=== PATIENT | male | born 1970 | race Caucasian/White ===

== ENCOUNTER → 2020-03-05 09:03 | Outpatient (CLI) | payer MEDICAID, SELFPAY ==
[2016-03-13 15:18] VITALS: BMI 37.1
[2020-03-05 10:33] LABS: Cholesterol 126 mg/dL (200); High Density Lipoprotein 24 mg/dL; Triglycerides 402 mg/dL
[2020-03-05 10:39] LABS: Microalbumin,Random Urine 9.2 mg/L (NO RANGE EST.); Microalbumin:Creatinine Ratio 4.8 mg/g CRE (<30 mg/g CRE)
[2020-03-05 10:41] LABS: Hemoglobin A1c 10.3 % (3.8-5.6)
[2020-03-05 11:36] LABS: Vitamin D,25 Hydroxy 21.8 ng/mL
== END ==
DX: E11.9 Type 2 diabetes mellitus without complications (principal); E78.5 Hyperlipidemia, unspecified; I10 Essential (primary) hypertension
CPT/HCPCS: 36415; 80061; 82043; 82306; 82570; 83036

== ENCOUNTER 2021-01-01 06:43 | Day surgery (SDC) | payer MEDICAID, SELFPAY ==
[2021-01-01] MEDS: Lactated Ringers 1,000 ML 15 ML IV (06:50)
[2021-01-01 07:08] VITALS: BP 142/97; PULSE 96; RESP 16; TEMP 36.6; O2SAT 97; BMI 35.4
[2021-01-01 07:35] LABS: Bedside Glucose 166 mg/dL (70-110)
--- NOTE | 2021-01-01 07:57 | HP.PCM_ITS ---
HPI - General HPI Narrative CLAYTON BARRIENTOS, is a 50 M who presents for screening colonoscopy. Patient's never had a previous colonoscopy. Patient denies any family history of colon cancer. Patient's bowel movements daily denies any blood. Patient denies any chronic abdominal pain/nausea/vomiting/reflux. [facility] Medical History (Updated 01/01/21 @ 08:[address] Rachel Colbert MD) Anxiety Diabetes Gastric reflux Gout High cholesterol History of diverticulitis History of rheumatic fever History of stress test Hypertension Insulin dependent diabetes mellitus Non-smoker Wears glasses Home Medications aspirin 81 mg PO DAILY@0800 03/13/16 [History Last Taken 03/13/16] diazepam 5 mg PO Q8 PRN #10 tab 03/13/16 [Rx Last Taken Unknown] glimepiride 4 mg PO DAILY 03/13/16 [History Last Taken 03/13/16] hydrochlorothiazide 25 mg PO DAILY 03/13/16 [History Last Taken 03/12/16] lisinopril [Prinivil] 10 mg PO BID 03/13/16 [History Last Taken 01/01/21] metformin 1,000 mg PO DAILY 03/13/16 [History Last Taken 03/13/16] sertraline [Zoloft] 25 mg PO DAILY 03/13/16 [History Last Taken 03/13/16] dulaglutide [Trulicity] 0.75 mg SUBCUT MOORE 12/31/20 [History Last Taken Unknown] insulin glargine [Lantus Solostar U-100 Insulin] 15 unit SUBCUT 0800 12/31/20 [History Last Taken Unknown] insulin glargine [Lantus Solostar U-100 Insulin] 55 unit SUBCUT QHS 12/31/20 [History Last Taken Unknown] omeprazole 40 mg PO DAILY 12/31/20 [History Last Taken Unknown] Allergy/AdvReac Type Severity Reaction Status Date / Time No Known Allergies Allergy Verified 01/01/21 07:06 Surgical History (Updated 12/31/20 @ 08:21 by Silvia Calero) Hx of surgical procedure Social History Smoking Status: Never smoker Past Medical/Surgical History Planned Operation Planned Operative Procedure/s: COLONOSCOPY Previous Hospitalizations/Surgeries HX Hospitalizations: No Any Problems With Anesthesia: No You/Your Family Experience Fever (Hyperthermia) With Anes: No Cholinesterase deficiency: No Cardiovascular Hx Heart Attack: No Hx Hypertension: Yes (CONTROLLED ON MED) Respiratory Hx Chronic Obstructive Pulmonary Disease (COPD): No Hx Asthma: No Hx Emphysema: No Hx Sleep Apnea: No Hx Respiratory Tract Infection/Cold (presently): No Do You Snore Loudly (louder than talking or can be heard): Yes Do You Often Feel Tired/ Fatigued/ Sleepy Dring Daytime?: No Has Anyone Observed You Stop Breathing During Sleep?: Yes Result (for STOP score): Positive Smoking Status: Never smoker Gastrointestinal Special diet followed at home: No Neurological Hx Seizures: No Does patient have nerve stimulator: No Endocrine Hx Diabetes: Yes Psycho/Social Hx Anxiety: Yes Miscellaneous Recent Exposure to Contagious Disease: No Allergies No Known Allergies Allergy (Verified 01/01/21 07:06) Discharge Is Pt Admitted From a [facility], or a Snf: No After D/C, Where Do you Plan to Go: Return Home Vital Signs Vital Signs Vital Signs: 01/01/21 07:08 Temperature 97.9 F Temperature Source Temporal Pulse Rate 96 Respiratory Rate 16 Respiratory Pattern Normal Blood Pressure 142/97 H Blood Pressure Mean 112 Blood Pressure Source Monitor Blood Pressure Position Semi-Fowlers Blood Pressure Location Right Arm Pulse Ox 97 Oxygen Delivery Method Room Air Weight Weight: 240 lb 4.862 oz Body Mass Index (BMI) 35.4 Physical Exam Const alert, oriented x3 and no apparent distress HEENT normocephalic and head/scalp atraumatic Resp normal respiratory effort Cardio regular rate GI soft to palpation and non-tender; Negative for non-distended Palpation: Negative for guarding Extremity no clubbing, cyanosis or edema Neuro CN's II-XII intact bilaterally Psych mental status grossly normal Assessment & Plan Assessment/Plan (1) Screening for colon cancer: Procedure Criteria Type of Procedure Procedure Type: Elective Elective Risks - COVID COVID Risk Discussion: The surgeon/proceduralist and patient have discussed in detail the risk of exposure to and/or potential harm posed by the COVID-19 virus with having a surgery/procedure at this time versus the risk of delaying the surgery/procedure. It is not possible to know either the risk of delaying the surgery or procedure or chance of getting an infection with perfect accuracy, but a joint decision was made between the patient and the surgeon/proceduralist to proceed at this time with the scheduled surgery/procedure as indicated on the consent form. Surgery Risks - Colonoscopy Risks Include but are not Limited To: Risks include but are not limited to: Bleeding, perforation requiring further surgery, inability to complete colonoscopy requiring barium enema.
--- NOTE | 2021-01-01 08:00 | COLBX_PTH ---
PATIENT: CLAYTON BARRIENTOS LOC: EN U#:[id number] AGE/SX: 50/M ROOM: RE01/01/[address]: Dr. Rachel Colbert MD : 1970 BED: DIS: 01/01/2021 SPEC #: [id number] RECD: 01/01/21 12:03 STATUS: FRITZ MARLEEN #: [id number] CORI: 01/01/21 08:[address]: Rachel Colbert DEPT: SURGICAL PATHOLOGY RECD BY: Daniela Anderson ENTERED: 01/01/21 13:33 SP TYPE: COLON BX OTHR DR: Aura Reed, COLD ROLLING SUPERVISOR-C [facility] Tissues: Rectum, NOS Procedures: Surgery Specimen Level IV HEADER OPERATION: Colonoscopy ? open access (MAC) PRE-OP DIAGNOSIS: Screening for colon cancer TISSUE SUBMITTED: Biopsy rectum polyp MICROSCOPIC DIAGNOSIS Rectum polyp, biopsy: Fragments of hyperplastic polyp. SJ:radha 01/02/2021 MICROSCOPIC DESCRIPTION Slides are reviewed. GROSS DESCRIPTION Received in fixative is one container labeled with the patient's name and designated biopsy rectum polyp. The specimen consists of multiple irregular fragments of light martinez soft tissue that in aggregate measure 0.8 x 0.3 x 0.1 cm. The specimen is totally submitted in one cassette. / RADHA:radha 01/01/21 TC:1 CPT: 76078
[2021-01-01 08:35] VITALS: BP 116/78; BP 142/97; PULSE 101; RESP 16; TEMP 36.3; O2SAT 96
--- NOTE | 2021-01-01 08:37 | OP.CCLET_ITS ---
01/01/2021 Crista Pretty [facility] Re : Colonoscopy procedure for Patricio Jenkins [facility] This procedure was performed on Friday, January 01, 2021. My impressions and recommendations are as follows: Impressions : - One less than 5 mm polyp in the rectum, removed with a cold biopsy forceps. Resected and retrieved. - The examination was otherwise normal. Recommendations : - Discharge patient to home. - Resume previous diet. - Continue present medications. - Await pathology results. - Repeat colonoscopy in 5-10 years for surveillance based on pathology results. My findings are described in the full procedure note, which is enclosed. If I can be of further assistance, please feel free to contact me at Doctor phone number(s): , Work: . Sincerely, MD Rachel Healy MD 01/01/2021 8:37:11 AM This report has been signed electronically.
--- NOTE | 2021-01-01 08:37 | OP.COLON_ITS ---
Patient Name: Patricio Jenkins Procedure Date: 01/01/2021 7:34 AM Date of : 1970 Age: 50 Procedure: Colonoscopy Indications: Screening for colorectal malignant neoplasm Providers: Rachel Colbert MD Medicines: Monitored Anesthesia Care Patient Profile: This is a 50 year old male. Last Colonoscopy: none. The patient's first colonoscopy is today. Complications: No immediate complications. Procedure: Pre-Anesthesia Assessment: - Prior to the procedure, a History and Physical was performed, and patient medications and allergies were reviewed. The patient's tolerance of previous anesthesia was also reviewed. The risks and benefits of the procedure and the sedation options and risks were discussed with the patient. All questions were answered, and informed consent was obtained. Prior Anticoagulants: The patient has taken no previous anticoagulant or antiplatelet agents. ASA Grade Assessment: Per anesthesia. After reviewing the risks and benefits, the patient was deemed in satisfactory condition to undergo the procedure. After I obtained informed consent, the scope was passed under direct vision. Throughout the procedure, the patient's blood pressure, pulse, and oxygen saturations were monitored continuously. The Colonoscope was introduced through the anus and advanced to the cecum, identified by appendiceal orifice and ileocecal valve. The colonoscopy was performed without difficulty. The patient tolerated the procedure well. The quality of the bowel preparation was good. Scope In: 8:09:01 AM Scope Withdrawal Time 0 hours 16 minutes 8 seconds Scope Out: 8:30:23 AM Total Procedure Duration Time 0 hours 21 minutes 22 seconds Findings: The perianal and digital rectal examinations were normal. A less than 5 mm polyp was found in the rectum. The polyp was sessile. The polyp was removed with a cold biopsy forceps. Resection and retrieval were complete. The exam was otherwise without abnormality. Impression: - One less than 5 mm polyp in the rectum, removed with a cold biopsy forceps. Resected and retrieved. - The examination was otherwise normal. Recommendation: - Discharge patient to home. - Resume previous diet. - Continue present medications. - Await pathology results. - Repeat colonoscopy in 5-10 years for surveillance based on pathology results. Procedure Code(s): --- Professional --- 45718, PT, Colonoscopy, flexible; with biopsy, single or multiple Diagnosis Code(s): --- Professional --- Z12.11, Encounter for screening for malignant neoplasm of colon K62.1, Rectal polyp CPT copyright 2017 [employer]. All rights reserved. The codes documented in this report are preliminary and upon cash management officer review may be revised to meet current compliance requirements. MD Rachel Healy MD 01/01/2021 8:37:11 AM This report has been signed electronically. Number of Addenda: 0 Note Initiated On: 01/01/2021 7:34 AM
[2021-01-01 08:40] VITALS: BP 124/90; BP 142/97; PULSE 98; RESP 16; O2SAT 94
[2021-01-01 08:45] VITALS: BP 122/87; BP 142/97; PULSE 93; RESP 16; O2SAT 93
[2021-01-01 08:50] VITALS: BP 115/95; BP 142/97; PULSE 89; RESP 16; TEMP 36.1; O2SAT 94
[2021-01-01 09:10] VITALS: BP 142/97
== END 2021-01-01 09:18 ==
LOC: EN 06:44 → AC 06:46
PROVIDERS: Visit Provider Surgery
PROC: 0DJD8ZZ Inspection of Lower Intestinal Tract, Via Natural or Artificial Opening Endoscopic (ICD-10-PCS; CPT 45378; principal; 2021-01-01 07:55)
DX: Z12.11 Encounter for screening for malignant neoplasm of colon (principal); K62.1 Rectal polyp; K21.9 Gastro-esophageal reflux disease without esophagitis; F41.9 Anxiety disorder, unspecified; E11.9 Type 2 diabetes mellitus without complications; I10 Essential (primary) hypertension; Z79.4 Long term (current) use of insulin; Z79.899 Other long term (current) drug therapy
CPT/HCPCS: 45380; 82962; 88305; J7120; J2405

== ENCOUNTER 2021-04-02 14:31 | Outpatient (CLI) | payer MEDICAID, SELFPAY ==
--- NOTE | 2021-04-02 14:51 | RAD_ITS ---
STUDY: X-RAY - PELVIS AND LEFT HIP REASON FOR EXAM: Male, 50 years old. PAIN IN LEG X 5 DAYS, CONSTANT TECHNIQUE: 3 views of the pelvis and hip. COMPARISON: None. FINDINGS: There is a non-specific bowel gas pattern. Normal visualized soft tissue structures. No visualized fracture. Normal bilateral iliac wings, sacroiliac joints and visualized sacrum. Normal bilateral superior and inferior pubic rami. Normal pubic symphysis. Normal bilateral ischial tuberosities. Normal visualized femoral head. Normal acetabulum. Normal hip joint. RAD/HIP, UNI W/ Pelvis 2-3 Views IMPRESSION: Normal x-ray examination of the pelvis and hip. Electronically Signed: Herve Inman MD at 16:57 EST ,
--- NOTE | 2021-04-02 14:59 | VDLE_ITS ---
Reason For Study: Pain LLE RIGHT LEFT CFV is compressible, spontaneous, phasic, GSV is normal. competent and demonstrates normal CFV is compressible, spontaneous, phasic, augmentation. competent, and demonstrates normal Procedure augmentation. This is a venous duplex using B-mode, color FV is compressible, spontaneous, phasic, flow and spectral Doppler. competent and demonstrates normal Exam performed in department. augmentation. A preliminary report was called and/or faxed POP V is compressible, spontaneous, phasic, to Aura Reed HEREDITARY CANCER PROGRAM COORDINATOR. competent and demonstrates normal augmentation. T/P Trunk is compressible. PTV is compressible. LT PerV is compressible. VL/Venous Duplex US, Unilateral Interpretation Summary There is no evidence of left lower extremity deep vein thrombosis. Left great s aphenous vein appears patent and compressible segmentally. Normal flow patterns right common femoral vein Ordering Physician: Aura Reed Referring Physician: Crista Pretty Performed By: Duyen Whipple, RDCS, RVT
[2021-04-02 15:23] LABS: Absolute Lymphocyte Count 2.61 X10^3/uL (0.83-4.51); Absolute Neutrophil Count 5.4 X10^3/uL (2.0-7.7); Basophil# 0.05 X10^3/uL; Basophil% 0.6 % (0-1); Eosinophil# 0.28 X10^3/uL; Eosinophils% 3.1 % (0-5); Hematocrit 51.5 % (40-54); Hemoglobin 17.4 g/dL (13.0-16.5); Lymphocyte # 2.61 X10^3/ul (0.83-4.51); Lymphocyte % 29.3 % (19-41); Mean Corp Hgb Conc 33.8 g/dL (32-36); Mean Corpuscular Hgb 27.4 pg (27.0-32.0); Mean Corpuscular Volume 81.1 fL (80-94); Mean Platelet Vol. 9.4 fl (6.2-12.0); Monocyte% 6.7 % (0-10); NRBC Flagged by Analyzer 0 % (0-5); Neutrophil # 5.35 X10^3/uL (2.7-7.7); Neutrophil % 60.1 % (47-70); Platelet Count 283 K/mm3 (150-450); RBC Distribution Width SD 41.2 fl (35.1-43.9); Red Blood Count 6.35 M/mm3 (4.6-6.2); White Blood Count 8.9 K/mm3 (4.4-11.0)
[2021-04-02 15:40] LABS: Erythrocyte Sedimentation Rate 11 mm/hr (0-20)
[2021-04-02 16:04] LABS: ALB/GLOB Ratio 0.9 RATIO (0.9-2.4); AST(SGOT) 34 U/L (15-37); Alanine Aminotransfer ALT/SGPT 50 U/L (16-61); Albumin, Serum 3.8 g/dL (3.2-5.0); Alkaline Phosphatase 85 U/L (45-117); Anion Gap 5 (5-15); BUN 16 mg/dL (7-18); BUN/Creat Ratio 12.9 RATIO (10-20); CPK Total, Creatine Kinase 154 U/L (39-308); CRP 4.34 mg/L (0.0-3.0); Calcium,Total 8.4 mg/dL (8.5-10.1); Chloride 102 mmol/L (98-107); Creatinine, Serum 1.24 mg/dL (0.70-1.30); EST Glomerular Filtration Rate 65 mL/min (>60); Est Glom Filt Rate - Afr Amer 79 mL/min (>60); Globulin 4.4 g/dL (2.2-4.2); Glucose 173 mg/dL (74-106); Potassium 4.3 mmol/L (3.5-5.1); Protein, Total 8.2 g/dL (6.4-8.2); Rheumatoid Factor < 10.0 IU/mL (<15); Sodium Level 136 mmol/L (136-145); Uric Acid 7.9 mg/dL (3.5-7.2)
[2021-04-04 14:29] LABS: MG Sendout 1.9 mg/dL (1.6-2.3)
== END 2021-04-02 23:59 | disposition home or self-care (01) ==
PROVIDERS: Visit Provider Nurse Practitioner Adult Health
DX: M25.552 Pain in left hip (principal); M79.662 Pain in left lower leg
CPT/HCPCS: 36415; 73502; 80053; 82550; 83735; 84550; 85025; 85652; 86140; 86431; 93971

== ENCOUNTER → 2021-07-31 | Outpatient (CLI) | payer MEDICAID, SELFPAY ==
[2021-07-31 13:23] LABS: Erythrocyte Sedimentation Rate 12 mm/hr (0-20)
[2021-07-31 13:39] LABS: Hemoglobin A1c 7.8 % (3.8-5.6)
[2021-07-31 13:44] LABS: Vitamin B12 332 pg/mL (211-911)
[2021-07-31 13:49] LABS: Anion Gap 3 (5-15); BUN 19 mg/dL (7-18); CPK Total, Creatine Kinase 90 U/L (39-308); Calcium,Total 8.7 mg/dL (8.5-10.1); Chloride 105 mmol/L (98-107); Creatinine, Serum 1.27 mg/dL (0.70-1.30); EST Glomerular Filtration Rate 63 mL/min (>60); Est Glom Filt Rate - Afr Amer 76 mL/min (>60); Glucose 151 mg/dL (74-106); Magnesium 2.2 mg/dL (1.6-2.6); Potassium 4.1 mmol/L (3.5-5.1); Sodium Level 139 mmol/L (136-145)
== END | disposition home or self-care (01) ==
LOC: LAB 12:10
DX: M79.661 Pain in right lower leg (principal); E11.65 Type 2 diabetes mellitus with hyperglycemia
CPT/HCPCS: 36415; 80048; 82550; 82607; 83036; 83735; 85652

== ENCOUNTER 2022-03-09 16:18 | Emergency (ER) | payer MEDICAID, SELFPAY ==
[2022-03-09 16:18] VITALS: BP 142/105; PULSE 93; RESP 18; TEMP 36.5; O2SAT 98; BMI 36.9
--- NOTE | 2022-03-09 16:34 | EKG12_ITS ---
Test Reason : CP Blood Pressure : / mmHG Vent. Rate : 092 BPM Atrial Rate : 092 BPM P-R Int : 210 ms QRS Dur : 076 ms QT Int : 342 ms P-R-T Axes : 032 001 036 degrees QTc Int : 422 ms Sinus rhythm with 1st degree A-V block Otherwise normal ECG Confirmed by LALY PAIZ, BIJU ([id number]), technical writer and editor VIKTORIYA MARVIN ([id number]) on 03/10/2022 9:45:35 AM Referred By: TL Confirmed By:BIJU RUFFIN MD
[2022-03-09 16:48] VITALS: O2SAT 98
--- NOTE | 2022-03-09 16:50 | RAD_ITS ---
INDICATION: chest pain EXAMINATION/TECHNIQUE: X-RAY - XR Chest 1 View COMPARISON: None. FINDINGS: LINES/DEVICES: None. LUNGS: No consolidation, edema or effusion. No pneumothorax. MEDIASTINUM AND CARDIOVASCULAR STRUCTURES: Cardiac silhouette not enlarged. Central airways and mediastinal contour are unremarkable. BONES AND SOFT TISSUES: Dorsal spine and right shoulder demonstrate degenerative changes. Left shoulder not visualized RAD/Chest 1 View (Portable) IMPRESSION: No radiographic evidence of acute cardiopulmonary disease. Electronically Signed: Ruben Lerma MD at 17:04 EST ,
[2022-03-09 16:56] LABS: Absolute Lymphocyte Count 3.12 X10^3/uL (0.83-4.51); Absolute Neutrophil Count 6.3 X10^3/uL (2.0-7.7); Basophil# 0.09 X10^3/uL; Basophil% 0.9 % (0-1); Eosinophil# 0.23 X10^3/uL; Eosinophils% 2.2 % (0-5); Lymphocyte # 3.12 X10^3/ul (0.83-4.51); Lymphocyte % 29.9 % (19-41); Mean Corp Hgb Conc 33.3 g/dL (32-36); Mean Corpuscular Hgb 27.7 pg (27.0-32.0); Mean Corpuscular Volume 83.1 fL (80-94); Mean Platelet Vol. 9.8 fl (6.2-12.0); Monocyte# 0.64 X10^3/uL; Monocyte% 6.1 % (0-10); NRBC Flagged by Analyzer 0 % (0-5); Neutrophil # 6.32 X10^3/uL (2.7-7.7); Neutrophil % 60.5 % (47-70); Platelet Count 297 K/mm3 (150-450); RBC Distribution Width SD 41.1 fl (35.1-43.9); White Blood Count 10.4 K/mm3 (4.4-11.0)
[2022-03-09 17:16] LABS: Anion Gap 3 (5-15); BUN 15 mg/dL (7-18); BUN/Creat Ratio 13.4 RATIO (10-20); Calcium,Total 9.1 mg/dL (8.5-10.1); Chloride 106 mmol/L (98-107); Creatinine, Serum 1.12 mg/dL (0.70-1.30); EST Glomerular Filtration Rate 73 mL/min (>60); Est Glom Filt Rate - Afr Amer 88 mL/min (>60); Estimated Creatinine Clearance 76.28 ml/min; Glucose 156 mg/dL (74-106); Potassium 4.2 mmol/L (3.5-5.1); Sodium Level 139 mmol/L (136-145); Troponin-I HS 3 pg/mL (3.0-78.0)
[2022-03-09 17:23] VITALS: BP 134/98; PULSE 92; RESP 16; O2SAT 96
[2022-03-09 17:27] VITALS: BP 115/74; PULSE 76; RESP 15; O2SAT 99
--- NOTE | 2022-03-09 17:35 | EDS_ITS ---
HPI History of Present Illness Chief Complaint: Chest Pain Informant: patient Narrative Narrative: Sent over from PCP office for evaluation of persistent left-sided chest discomfort for the past week. Started with upper EXTR sinus congestion that is improving. He had no cough with this. He has history of hypertension diabetes, hyperlipidemia. Denies tobacco history.'s been using nasal spray unclear the brand he states blood pressure is more elevated since this however stopped 3 days ago. No headaches. Stress test years ago no history of MIs. Denies recent travel or surgeries no history of PE or DVT. [facility] Medical History Anxiety Diabetes Gastric reflux Gout High cholesterol History of diverticulitis History of rheumatic fever History of stress test Hypertension Insulin dependent diabetes mellitus Non-smoker Wears glasses Home Medications aspirin 81 mg chewable tablet 81 mg PO DAILY@0800 03/13/16 [History Last Taken 03/13/16] diazepam 5 mg tablet 5 mg PO Q8 PRN Vertigo #10 tabs 03/13/16 [Rx Last Taken Unknown] glimepiride 4 mg tablet 4 mg PO DAILY 03/13/16 [History Last Taken 03/13/16] hydrochlorothiazide 25 mg tablet 25 mg PO DAILY 03/13/16 [History Last Taken 03/12/16] lisinopril 10 mg tablet (Prinivil) 10 mg PO BID 03/13/16 [History Last Taken 01/01/21] metformin 1,000 mg tablet 1,000 mg PO DAILY 03/13/16 [History Last Taken 03/13/16] sertraline 25 mg tablet (Zoloft) 25 mg PO DAILY 03/13/16 [History Last Taken 03/13/16] dulaglutide 0.75 mg/0.5 mL subcutaneous pen injector (Trulicity) 0.75 mg subcut MOORE 12/31/20 [History Last Taken Unknown] insulin glargine 100 unit/mL (3 mL) subcutaneous pen (Lantus Solostar U-100 Insulin) 15 unit subcut 0800 12/31/20 [History Last Taken Unknown] insulin glargine 100 unit/mL (3 mL) subcutaneous pen (Lantus Solostar U-100 Insulin) 55 unit subcut QHS 12/31/20 [History Last Taken Unknown] omeprazole 40 mg capsule,delayed release 40 mg PO DAILY 12/31/20 [History Last Taken Unknown] Allergy/AdvReac Type Severity Reaction Status Date / Time No Known Allergies Allergy Verified 01/01/21 07:06 Surgical History Hx of surgical procedure Social History Smoking Status: Never smoker ROS ROS ED Constitutional Constitutional ED: Denies chills, fever(s) or sweats Eyes Eyes: Denies change in vision ENT ENT ED: Denies dysphagia or sore throat Cardiovascular Cardiovascular: Reports chest pain; Denies leg edema, palpitations or racing heartbeat Respiratory/Chest Respiratory/Chest: Denies cough, dyspnea or dyspnea on exertion Gastrointestinal Gastrointestinal: Denies abdominal pain, diarrhea, nausea or vomiting Genitourinary Genitourinary ED: Denies dysuria, hematuria or urinary frequency Musculoskeletal Musculoskeletal: Denies back pain, extremity pain or neck pain Integumentary Denies rash or wounds Neurologic Neurologic: Denies headache(s), paresthesias or weakness EXAM Physical Exam Const Vital Signs: 03/09/22 16:18 03/09/22 16:48 03/09/22 16:55 Temperature 97.7 F L Temperature Source Temporal Pulse Rate 93 Respiratory Rate 18 Respiratory Effort Normal Blood Pressure 142/105 H Blood Pressure Mean 117 Pulse Ox 98 98 Oxygen Delivery Method Room Air Room Air 03/09/22 17:23 03/09/22 17:27 Temperature Temperature Source Pulse Rate 92 76 Respiratory Rate 16 15 Respiratory Effort Blood Pressure 134/98 H 115/74 Blood Pressure Mean 110 87 Pulse Ox 96 99 Oxygen Delivery Method Room Air Room Air Positive well nourished and well developed General Appearance ED: well developed and NAD HEENT Reports moist mucous membranes normocephalic and atraumatic Eyes PERRL, EOMs intact bilaterally and conjunctivae normal General Eye ED: Yes normal appearance of both eyes Neck no lymphadenopathy and supple General: Negative for tenderness Chest Wall Chest: Negative for tenderness Resp normal respiratory effort and normal air movement Effort and Inspection: symmetric chest movement; Negative for respiratory distress Cardio regular rate, regular rhythm and no murmurs Peripheral Pulses: pulses 2+ throughout GI normal to inspection, nondistended, normoactive bowel sounds and non-tender Palpation: Negative for guarding or rebound tenderness present Back/Spine no CVA tenderness and no thoracic nor lumbar tenderness Extremity normal to inspection General Extremety ED: Negative for edema or tenderness General Extremity: Negative for edema Neuro oriented x3 and no sensory deficits noted Sensorium / Orientation: awake and alert Skin no rashes or lesions noted and no wounds Heart Score History: Slightly/Non-Suspicious ECG: Normal Age: >45 - <65 years Risk Factors: >/= 3 Risk Factors or History of CAD Troponin: </= Normal Limit Score: 3 MDM MDM MDM Narrative Medical decision making narrative: Patient sent in from doctor's office for evaluation. Nursing protocol initiated work-up. Differential of the symptoms ACS, viral syndrome, musculoskeletal. He has no PE risk factors he is nonhypoxic denies any dyspnea therefore less likely PE concerns. Cardiac work-up was initiated EKG initial troponin negative. With persistent symptoms for a week AKA negative troponin not likely ACS. Hemoglobin 18 he does not smoke last hemoglobin 17.4. White count 10.4 creatinine 1.12. 1 view chest x-ray interpreted myself and read by radiology shows no acute process. Patient more reassured. As for his blood pressure slightly elevated diastolic initially he reported using nasal spray discussed checking for decongestions which can raise blood pressure has not used in 3 days clinically sinus congestion has improved. He will follow-up with his PCP for further testing as an outpatient return precautions all questions were answered. Lab Data Attestation: I reviewed the patient's lab results. Labs: Laboratory Results - last 24 hr 03/09/22 03/09/22 16:45 16:45 WBC 10.4 RBC 6.50 H Hgb 18.0 H* Hct 54.0 MCV 83.1 MCH 27.7 MCHC 33.3 RDW Std Deviation 41.1 RDW Coeff of Tian 14.0 Plt Count 297 MPV 9.8 Immature Gran % (Auto) 0.400 Neut % (Auto) 60.5 Lymph % (Auto) 29.9 [place] % (Auto) 6.1 Eos % (Auto) 2.2 Baso % (Auto) 0.9 Absolute Neuts (auto) 6.3 Absolute Lymphs (auto) 3.12 Nucleated RBC % 0 Diff Path Review May foll Sodium 139 Potassium 4.2 Chloride 106 Carbon Dioxide 30.0 Anion Gap 3 L BUN 15 Creatinine 1.12 Estim Creat Clear Calc 76.28 Est GFR (MDRD) Af Amer 88 Est GFR (MDRD) Non-Af 73 BUN/Creatinine Ratio 13.4 Glucose 156 H Calcium 9.1 Troponin I High Sens 3 Radiography Diagnostic Testing: Clinical Impression(s) from Imaging Studies Chest X-Ray 03/09/22 16:50 IMPRESSION: No radiographic evidence of acute cardiopulmonary disease. Electronically Signed: Ruben Lerma MD at 17:04 EST Reading Location ID and State: [facility] / [place] , Service support , EKG Initial EKG: Attestation: I personally reviewed and interpreted this EKG as follows: Comments: Sinus rate of 92, no ST or T wave changes. Discharge Plan Triage Chief Complaint: Chest Pain ED Provider: Saman Hunter Dx/Rx/DC Orders Clinical Impression: Chest pain, Congestion of nasal sinus Instructions: ED Chest Pain, Uncertain Cause Prescriptions: No Action metformin 1,000 MG tablet 1,000 mg PO DAILY lisinopril [Prinivil] 10 MG tablet 10 mg PO BID glimepiride 4 MG tablet 4 mg PO DAILY sertraline [Zoloft] 25 MG tablet 25 mg PO DAILY aspirin 81 MG tablet,chewable 81 mg PO DAILY@0800 hydrochlorothiazide 25 MG tablet 25 mg PO DAILY diazepam 5 MG tablet 5 mg PO Q8 PRN (Reason: Vertigo) Qty: 10 0RF omeprazole 40 mg capsule,delayed release(DR/EC) 40 mg PO DAILY Label Comments: TAKE 1 CAPSULE BY MOUTH EVERY DAY Lantus Solostar U-100 Insulin 100 unit/mL (3 mL) insulin pen 55 unit SUBCUT QHS Label Comments: inject 55 units at at bedtime and 15 units in am Lantus Solostar U-100 Insulin 100 unit/mL (3 mL) insulin pen 15 unit SUBCUT 0800 Label Comments: inject 55 units at at bedtime and 15 units in am Trulicity 0.75 mg/0.5 mL pen injector 0.75 mg SUBCUT MOORE Label Comments: Inject 0.75 mg subcutaneous every week as directed Primary Care Provider: [facility] Crista Boggs Referrals: [facility] Crista Boggs [Primary Care Provider] - 3-5 Days Activity Restrictions/Additional Instructions: Negative cardiac work-up. Check urine nasal spray if there is a decongestions may cause elevated blood pressure have been diagnosed at 3 days. Follow-up with your doctor for further testing for chest symptoms. Return if any worsening symptoms. Disposition Disposition: Home, Self Care Discharge Date/Time: 03/09/22 17:47
[2022-03-11 09:38] LABS: Pathologist Review Reviewed
== END 2022-03-09 17:47 | disposition home or self-care (01) ==
PROVIDERS: Emergency Provider Emergency Medicine; Visit Provider Emergency Medicine
DX: R07.9 Chest pain, unspecified (principal); E11.9 Type 2 diabetes mellitus without complications; I10 Essential (primary) hypertension; R09.81 Nasal congestion; E78.5 Hyperlipidemia, unspecified
CPT/HCPCS: 71045; 80048; 84484; 85025; 93005; 99284; A4216

== ENCOUNTER → 2022-03-13 | Outpatient (CLI) | payer MEDICAID, SELFPAY ==
--- NOTE | 2022-03-13 17:23 | STRESSREP_ITS ---
Stress Test Report Exercise myocardial perfusion stress test. 51-year-old man with a history of chest pain Stress protocol: Resting EKG demonstrates normal sinus rhythm with a rate of 90 bpm resting blood pressure is 138/90 mmHg. The patient exercised according to the regular Nate protocol for a total duration of 7 minutes and 10 seconds attaining a maximum heart rate of 155 bpm which was 92% of maximum predicted heart rate; the maximum workload was 10.1 metabolic equivalents. At rest there were no ST or T wave changes noted to suggest ischemia and at peak exercise upsloping ST changes only were noted which did not meet the criteria for ischemia. No clinical angina was noted the test was terminated due to the target heart rate being achieved/fatig ue. The peak blood pressure was 194/90 mmHg. Rate-pressure product was 29,400. Conclusion: Normal exercise stress test with no evidence of ischemia at a high workload No arrhythmias noted
== END | disposition home or self-care (01) ==
LOC: CVS 10:47
PROVIDERS: PCP Internal Medicine Cardiovascular Disease; Referring Provider Internal Medicine Cardiovascular Disease; Visit Provider Nurse Practitioner Family
DX: R07.9 Chest pain, unspecified (principal)
CPT/HCPCS: 93017

== ENCOUNTER → 2022-06-19 | Outpatient (CLI) | payer MEDICAID, SELFPAY ==
[2022-06-19 10:34] LABS: Hemoglobin 17.2 g/dL (13.0-16.5); Mean Corp Hgb Conc 33.7 g/dL (32-36); Mean Corpuscular Hgb 28.1 pg (27.0-32.0); Mean Corpuscular Volume 83.3 fL (80-94); Mean Platelet Vol. 9.5 fl (6.2-12.0); Platelet Count 238 K/mm3 (150-450); RBC Distribution Width CV 13.6 % (11.6-14.6); RBC Distribution Width SD 40.9 fl (35.1-43.9); Red Blood Count 6.12 M/mm3 (4.6-6.2)
[2022-06-19 10:39] LABS: Scan Indicated on CBC? Y/N NO
[2022-06-19 10:52] LABS: ALB/GLOB Ratio 0.9 RATIO (0.9-2.4); AST(SGOT) 35 U/L (15-37); Alanine Aminotransfer ALT/SGPT 45 U/L (16-61); Albumin, Serum 3.3 g/dL (3.2-5.0); Alkaline Phosphatase 78 U/L (45-117); Anion Gap 2 (5-15); BUN 12 mg/dL (7-18); BUN/Creat Ratio 9.9 RATIO (10-20); Calcium,Total 8.3 mg/dL (8.5-10.1); Chloride 105 mmol/L (98-107); Cholesterol 182 mg/dL (200); Creatinine, Serum 1.21 mg/dL (0.70-1.30); EST Glomerular Filtration Rate 66 mL/min (>60); Est Glom Filt Rate - Afr Amer 80 mL/min (>60); Globulin 3.8 g/dL (2.2-4.2); Glucose 188 mg/dL (74-106); High Density Lipoprotein 23 mg/dL; Microalbumin,Random Urine 8.7 mg/L (NO RANGE EST.); Protein, Total 7.1 g/dL (6.4-8.2); Sodium Level 135 mmol/L (136-145); Triglycerides 331 mg/dL; Very Low Density Lipoprotein 66 mg/dL (5-40)
[2022-06-19 10:54] LABS: Hemoglobin A1c 9.2 % (3.8-5.6)
== END | disposition home or self-care (01) ==
LOC: LAB 10:10
DX: I10 Essential (primary) hypertension (principal); E11.65 Type 2 diabetes mellitus with hyperglycemia; E78.2 Mixed hyperlipidemia
CPT/HCPCS: 36415; 80053; 80061; 82043; 83036; 85027

== ENCOUNTER 2022-08-23 21:02 | Emergency (ER) | payer MEDICAID, SELFPAY ==
[2022-08-23 21:03] VITALS: BP 151/100; PULSE 82; RESP 16; TEMP 36.4; O2SAT 100; BMI 38.5
--- NOTE | 2022-08-23 21:27 | ED.VIS.BACK ---
HPI History of Present Illness Chief Complaint: Back Detail of Chief Complaint: Left lower back pain and burning right-sided abdominal pain Informant: patient and spouse/S.O. 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 He denies foot drop. He denies buckling of his knees going up or down steps.); Negative for Numbness, Tingling, Radiation to Right Leg, Radiation to Left Leg, Fever, Abdominal Pain, Dysuria, Unable to Ambulate, Unable to Transfer, Urinary Retention, Urinary Incontinence, Constipation or Fecal Incontinence Narrative Narrative: Patient is a 52-year-old male with history of type 1 diabetes on insulin for the past several years, hypertension, reflux and depression. He presents because a left-sided lower back pain. He states he was seen in urgent care and placed on muscle relaxant. He does not recall the name of the muscle relaxant. He denies fever, chills night sweats. Denies recent dental procedure. He states this episode of pain started after a trip to [place]. Presently has no pain. He also complains of a burning sensation anterior right side of his abdomen. Presently has no burning. He denies nausea, vomiting or diarrhea. He denies change in color, consistency or caliber of his stool. He denies black or maroon stool. He denies mucus or blood in his stool. He denies history of renal ureterolithiasis. He denies radiation of the pain to his groin from his left-sided back and denies the burning sensation radiating through to his back or groin area. There is no history of direct trauma. He has not noted a rash. Prior similar symptoms: Yes Recent Illness/Hospitalization: Yes [facility] Medical History Anxiety Diabetes Gastric reflux Gout High cholesterol History of diverticulitis History of rheumatic fever History of stress test Hypertension Insulin dependent diabetes mellitus Non-smoker Wears glasses Home Medications aspirin 81 mg chewable tablet 81 mg PO DAILY@0800 03/13/16 [History Last Taken 03/13/16] diazepam 5 mg tablet 5 mg PO Q8 PRN Vertigo #10 tabs 03/13/16 [Rx Last Taken Unknown] glimepiride 4 mg tablet 4 mg PO DAILY 03/13/16 [History Last Taken 03/13/16] hydrochlorothiazide 25 mg tablet 25 mg PO DAILY 03/13/16 [History Last Taken 03/12/16] lisinopril 10 mg tablet (Prinivil) 10 mg PO BID 03/13/16 [History Last Taken 01/01/21] metformin 1,000 mg tablet 1,000 mg PO DAILY 03/13/16 [History Last Taken 03/13/16] sertraline 25 mg tablet (Zoloft) 25 mg PO DAILY 03/13/16 [History Last Taken 03/13/16] dulaglutide 0.75 mg/0.5 mL subcutaneous pen injector (Trulicity) 0.75 mg subcut MOORE 12/31/20 [History Last Taken Unknown] insulin glargine 100 unit/mL (3 mL) subcutaneous pen (Lantus Solostar U-100 Insulin) 15 unit subcut 0800 12/31/20 [History Last Taken Unknown] insulin glargine 100 unit/mL (3 mL) subcutaneous pen (Lantus Solostar U-100 Insulin) 55 unit subcut QHS 12/31/20 [History Last Taken Unknown] omeprazole 40 mg capsule,delayed release 40 mg PO DAILY 12/31/20 [History Last Taken Unknown] Allergy/AdvReac Type Severity Reaction Status Date / Time No Known Allergies Allergy Verified 01/01/21 07:06 Surgical History Hx of surgical procedure Social History (Updated 08/23/22 @ 21:[address] Vega Murray MD) household members: spouse Smoking Status: Never smoker substance use type: does not use ROS ROS ED Constitutional Constitutional ED: Denies chills, fever(s), subjective, sweats or weight loss Eyes Eyes: Denies blurry vision, change in vision, diplopia or other ENT ENT ED: Denies ear pain, rhinorrhea, sore throat or other Cardiovascular Cardiovascular: Denies chest pain, orthopnea, palpitations, paroxysmal nocturnal dyspnea, racing heartbeat or other Respiratory/Chest Respiratory/Chest: Denies dyspnea, dyspnea on exertion, orthopnea, paroxysmal nocturnal dyspnea, sputum or other Gastrointestinal Gastrointestinal: Reports abdominal pain; Denies constipation, diarrhea, melena, nausea or vomiting Genitourinary Genitourinary ED: Denies dysuria, hematuria or urinary frequency Musculoskeletal Musculoskeletal: Reports back pain; Denies arthralgias, myalgias or neck pain Integumentary Denies Abrasions or rash Neurologic Neurologic: Denies headache(s) or paresthesias Endocrine Endocrinology: Denies cold intolerance or heat intolerance Hematologic/Lymphatic Hematologic/Lymphatic: Denies easy bleeding or easy bruising EXAM Physical Exam Const Vital Signs: 08/23/22 21:03 Temperature 97.5 F L Temperature Source Temporal Pulse Rate 82 Respiratory Rate 16 Blood Pressure 151/100 H Blood Pressure Mean 117 Pulse Ox 100 Oxygen Delivery Method Room Air Positive well nourished, well developed and obese General Appearance ED: well developed and NAD; Negative for pallor Nutritional Appearance: obese HEENT Reports moist mucous membranes HEENT Narrative: Head is atraumatic normocephalic. Ears are normal. Nares are patent. Mucosa is moist. Eyes PERRL and EOMs intact bilaterally General Eye ED: Negative for pale conjunctiva or scleral icterus Neck no lymphadenopathy, supple and no JVD Resp normal respiratory effort and clear to auscultation bilaterally Cardio regular rate, regular rhythm, S1 normal heart sound, S2 normal heart sound and no murmurs GI normal to inspection, nondistended, normoactive bowel sounds, soft to palpation, non-tender, non-distended and no masses GI Narrative: There is no abdominal bruit. Palpation: Negative for hepatomegaly or splenomegaly Back/Spine normal to inspection and no thoracic nor lumbar tenderness Back/Spine Narrative: EHLs intact bilaterally. Normal sensation of L3, L4, L5 and S1 dermatome. Patella and ankle reflex are 1+ and symmetric. EHLs intact. DP pulses palpable and symmetric. Gait was observed and normal. He is able to walk on heels and toes. He is able to perform 1 legged squat right and left. He has no reproducible back pain. General Back: Negative for CVA tenderness Thoracic Spine / Upper Back: Negative for paraspinal muscle tenderness Lumbar Spine / Lower Back: ROM limited and straight leg raise negative bilaterally Extremity normal to inspection and no clubbing, cyanosis or edema General Extremety ED: Negative for edema General Extremity: Negative for edema Neuro oriented x3 and no sensory deficits noted Sensorium / Orientation: alert Motor Exam: strength 5/5 throughout Deep Tendon Reflexes: Rt Patellar (L4): 1+, Lt Patellar (L4): 1+, Rt Ankle (S1): 1+ and Lt Ankle (S1): 1+ Deep Tendon Reflexes Back: Rt Patellar (L4): 1+, Lt Patellar (L4): 1+, Rt Ankle (S1): 1+ and Lt Ankle (S1): 1+ Psych mental status grossly normal Skin no rashes or lesions noted and no wounds General Skin Exam: Negative for jaundice or pallor MDM MDM MDM Narrative Medical decision making narrative: With patient presently having no back pain patient was informed unable to determine what caused his pain. Most likely this is musculoskeletal. With regards to his burning pain this may be atypical presentation for diabetic neuropathy. There is no dermatologic lesions to suggest herpes varicella-zoster and with symptoms of intermittent for the past several weeks this would be highly unlikely. Since she does have some mild discomfort in the right upper quadrant comprehensive metabolic panel was obtained to assess liver enzymes. CBC to assess white count and H&H. History & Record Review Additional record(s) reviewed:: Prior outpatient record (Colonoscopy report by Dr. Calderon was reviewed. He did have a small polyp that was removed near the rectum.) Lab Data Attestation: I reviewed the patient's lab results. Lab results narrative: CBC is. Comprehensive metabolic panel reveals elevated creatinine of 1.39 with a GFR is 57. Labs: Laboratory Results - last 24 hr 08/23/22 21:30 WBC 9.0 RBC 5.86 Hgb 16.5 Hct 49.7 MCV 84.8 MCH 28.2 MCHC 33.2 RDW Std Deviation 39.8 RDW Coeff of Tian 13.1 Plt Count 284 MPV 9.4 Immature Gran % (Auto) 0.300 Neut % (Auto) 55.0 Lymph % (Auto) 32.6 [place] % (Auto) 8.7 Eos % (Auto) 2.8 Baso % (Auto) 0.6 Absolute Neuts (auto) 4.9 Absolute Lymphs (auto) 2.93 Nucleated RBC % 0 Sodium 137 Potassium 4.0 Chloride 105 Carbon Dioxide 28.0 Anion Gap 4 L BUN 18 Creatinine 1.39 H Estim Creat Clear Calc 60.75 Est GFR (MDRD) Af Amer 68 Est GFR (MDRD) Non-Af 57 L BUN/Creatinine Ratio 12.9 Glucose 115 H Calcium 9.0 Total Bilirubin 0.60 AST 19 ALT 35 Alkaline Phosphatase 75 Total Protein 7.4 Albumin 3.5 Globulin 3.9 Albumin/Globulin Ratio 0.9 Treatment and Re-Evaluation Narrative: Patient and spouse were informed of his test results. Patient was told that his back pain is musculoskeletal. The burning sensation he is experiencing on his abdomen is unknown. Discharge Plan Triage Chief Complaint: Back ED Provider: Vega Murray Dx/Rx/DC Orders Clinical Impression: Abdominal burning sensation in right upper quadrant, Low back pain Instructions: ED Back and Neck Pain, General Prescriptions: No Action metformin 1,000 MG tablet 1,000 mg PO DAILY lisinopril [Prinivil] 10 MG tablet 10 mg PO BID glimepiride 4 MG tablet 4 mg PO DAILY sertraline [Zoloft] 25 MG tablet 25 mg PO DAILY aspirin 81 MG tablet,chewable 81 mg PO DAILY@0800 hydrochlorothiazide 25 MG tablet 25 mg PO DAILY diazepam 5 MG tablet 5 mg PO Q8 PRN (Reason: Vertigo) Qty: 10 0RF omeprazole 40 mg capsule,delayed release(DR/EC) 40 mg PO DAILY Patient Comments: TAKE 1 CAPSULE BY MOUTH EVERY DAY Lantus Solostar U-100 Insulin 100 unit/mL (3 mL) insulin pen 55 unit SUBCUT QHS Patient Comments: inject 55 units at at bedtime and 15 units in am Lantus Solostar U-100 Insulin 100 unit/mL (3 mL) insulin pen 15 unit SUBCUT 0800 Patient Comments: inject 55 units at at bedtime and 15 units in am Trulicity 0.75 mg/0.5 mL pen injector 0.75 mg SUBCUT MOORE Patient Comments: Inject 0.75 mg subcutaneous every week as directed [facility] - As Needed Disposition Disposition: Home, Self Care
[2022-08-23 21:36] LABS: Absolute Lymphocyte Count 2.93 X10^3/uL (0.83-4.51); Absolute Neutrophil Count 4.9 X10^3/uL (2.0-7.7); Basophil# 0.05 X10^3/uL; Basophil% 0.6 % (0-1); Eosinophil# 0.25 X10^3/uL; Eosinophils% 2.8 % (0-5); Hematocrit 49.7 % (40-54); Hemoglobin 16.5 g/dL (13.0-16.5); Lymphocyte # 2.93 X10^3/ul (0.83-4.51); Lymphocyte % 32.6 % (19-41); Mean Corp Hgb Conc 33.2 g/dL (32-36); Mean Corpuscular Hgb 28.2 pg (27.0-32.0); Mean Corpuscular Volume 84.8 fL (80-94); Mean Platelet Vol. 9.4 fl (6.2-12.0); Monocyte# 0.78 X10^3/uL; Monocyte% 8.7 % (0-10); NRBC Flagged by Analyzer 0 % (0-5); Neutrophil # 4.94 X10^3/uL (2.7-7.7); Platelet Count 284 K/mm3 (150-450); RBC Distribution Width CV 13.1 % (11.6-14.6); RBC Distribution Width SD 39.8 fl (35.1-43.9); Red Blood Count 5.86 M/mm3 (4.6-6.2)
[2022-08-23 21:53] LABS: ALB/GLOB Ratio 0.9 RATIO (0.9-2.4); AST(SGOT) 19 U/L (15-37); Alanine Aminotransfer ALT/SGPT 35 U/L (16-61); Albumin, Serum 3.5 g/dL (3.2-5.0); Alkaline Phosphatase 75 U/L (45-117); Anion Gap 4 (5-15); BUN 18 mg/dL (7-18); BUN/Creat Ratio 12.9 RATIO (10-20); Chloride 105 mmol/L (98-107); Creatinine, Serum 1.39 mg/dL (0.70-1.30); EST Glomerular Filtration Rate 57 mL/min (>60); Est Glom Filt Rate - Afr Amer 68 mL/min (>60); Estimated Creatinine Clearance 60.75 ml/min; Globulin 3.9 g/dL (2.2-4.2); Glucose 115 mg/dL (74-106); Protein, Total 7.4 g/dL (6.4-8.2); Sodium Level 137 mmol/L (136-145)
== END 2022-08-23 23:58 | disposition home or self-care (01) ==
PROVIDERS: Emergency Provider Emergency Medicine; Visit Provider Emergency Medicine
DX: M54.50 Low back pain, unspecified (principal); E10.9 Type 1 diabetes mellitus without complications; Z79.4 Long term (current) use of insulin; I10 Essential (primary) hypertension; E78.00 Pure hypercholesterolemia, unspecified; E66.9 Obesity, unspecified; R10.11 Right upper quadrant pain
CPT/HCPCS: 80053; 85025; 99283; A4216

== ENCOUNTER → 2023-03-01 | Outpatient (CLI) | payer MEDICAID, SELFPAY ==
--- OUTSIDE RECORDS SUMMARY | 2023-03-01 09:30 | XMS RPT_ITS | CCD ---
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 12 tablet 0 08/17/2022 08/20/2022 Active Completed/Discontinued Medications Medication Drug Class(es) Dates Sig (Normalized) Sig (Original) aspirin 81 mg delayed release oral tablet (4 sources) Platelet Aggregation Inhibitor, Nonsteroidal Anti-inflammatory Drug Start: 01-13-2021 take 1 tablet by mouth once daily aspirin, enteric coated (ASPIRIN, ENTERIC COATED) 81 mg EC tablet Take 81 mg by mouth once daily. 0 01/13/2021 Active Problems Problem Classification Problem Date Documented Da te Episodic/Chronic Anxiety disorders (4 sources) Anxiety; Translations: [Anxiety disorder, unspecified] 03-20-2009 Chronic Disorders of lipid metabolism (4 sources) Hyperlipidemia; Translations: [Hyperlipidemia, unspecified] 03-20-2009 Chronic Diverticulosis and diverticulitis (4 sources) Diverticulitis; Translations: [Diverticulitis of intestine, part unspecified, without perforation or abscess without bleeding] Onset: 03-20-2009 03-20-2009 Chronic Essential hypertension (4 sources) Hypertensive disorder; Translations: [Essential (primary) hypertension] Onset: 03-20-2009 03-20-2009 Chronic Mood disorders (4 sources) Depressive disorder; Translations: [Other specified depressive episodes] Onset: 03-20-2009 03-20-2009 Chronic Other gastrointestinal disorders (1 source) Finding of sensation of abdomen; Translations: [Other specified symptoms and signs involving the digestive system and abdomen] Episodic Residual codes; unclassified (2 sources) Pain; Translations: [Pain, unspecified] Episodic Spondylosis; intervertebral disc disorders; other back problems (1 source) Acute low back pain; Translations: [Acute bilateral low back pain without sciatica] Episodic Results Test Name Value Interpretation Reference Range Facil ity Vital Signs Date Time Vital Sign Value Performing Clinician Faci lity 08-17-2022 11:24-0400 Body temperature 97.39 [degF] Krislyn Aberegg PA Work Phone: [facility] 08-17-2022 11:24-0400 Body weight 114.22 kg Krislyn Aberegg PA Work Phone: [facility] 08-17-2022 11:24-0400 Diastolic blood pressure 98 mm[Hg] Krislyn Aberegg PA Work Phone: [facility] 08-17-2022 11:24-0400 Heart rate 76 /min Krislyn Aberegg PA Work Phone: [facility] 08-17-2022 11:24-0400 Respiratory rate 18 /min Krislyn Aberegg PA Work Phone: [facility] 08-17-2022 11:24-0400 SaO2% (BldA) [Mass fraction] 96 % Krislyn Aberegg PA Work Phone: [facility] 08-17-2022 11:24-0400 Systolic blood pressure 140 mm[Hg] Krislyn Aberegg PA Work Phone: [facility] Encounters Encounter Date Encounter Type Care Provider Facility Start: 12-13-2022 End: 12-13-2022 ambulatory Facility:[facility] Start: 08-17-2022 End: 08-17-2022 ambulatory Facility:[facility] Start: 08-17-2022 End: 08-17-2022 Patient encounter procedure Krislyn P Aberegg PA Work Phone: [facility] Procedures Date Procedure Procedure Detail Performing Clinician Start: 08-17-2022 Urnls dip stick/tabl et rgnt auto w/o microscopy Celeste PEREIRA Work Phone: Start: 06-10-2021 Radex foot complete minimum 3 views Leonard Wilson Work Phone: Plan of Treatment Date Care Activity Detail Author Start: 10-23-2022 Influenza vaccination INFLUENZA (Season Ended) [facility] Start: 10-23-2021 Influenza vaccination INFLUENZA (Season Ended) [facility] Start: 2018 SHINGRIX VACCINE (1 of 2) SHINGRIX VACCINE (1 of 2) [facility] Start: 09-01-2016 LIPID SCREEN LIPID SCREEN [facility] Start: 09-01-2014 DIABETES SCREEN DIABETES SCREEN [facility] Start: 2013 COLOGUARD (FIT-DNA) COLOGUARD (FIT-DNA) [facility] Start: 2013 Colonoscopy COLONOSCOPY [facility] Start: 2013 COLORECTAL CANCER SCREENING COLORECTAL CANCER SCREENING [facility] Start: [address] COLONOGRAPHY [facility] Start: 2013 FECAL OCCULT BLOOD FECAL OCCULT BLOOD [facility] Start: 2013 SIGMOIDOSCOPY SIGMOIDOSCOPY [facility] Start: 06-08-1987 Urine microalbumin profile DTAP,TDAP,TD (1 - Tdap) [facility] Start: 1986 ANNUAL PCP TEAM CHRONIC DISEASE VISIT ANNUAL PCP TEAM CHRONIC DISEASE VISIT [facility] Start: 1986 BP CONTROLLED (<130/80) BP CONTROLLED (<130/80) [facility] Start: 1986 HEPATITIS C SCREENING HEPATITIS C SCREENING [facility] Start: 1986 HIV SCREENING HIV SCREENING [facility] Start: 1973 COVID-19 VACCINE (1) COVID-19 VACCINE (1) [facility] Start: 1968 COVID-19 VACCINE (#1) COVID-19 VACCINE (#1) [facility] Start: 1968 HEPATITIS B (1 of 3 - 3-dose series) HEPATITIS B (1 of 3 - 3-dose series) [facility] End: 06-28-2022 XR CALCANEUS 2V AXIAL/LAT RIGHT XR CALCANEUS 2V AXIAL/LAT RIGHT Radiology Routine Pain 1 Occurrences starting 05/29/2021 until 06/28/2022 [facility] Work Phone: Payers Date Payer Category Payer Medicaid [facility] MEDIC [facility] [employer] [id number] 2022-Present [phone] [address] [place] [address] Medicaid [id number] 2022 Medicaid [id number] 2013 Medicaid [facility] MEDIC AID [employer] [id number] 2013-Present [phone] [address] [place] [address] Medicaid [id number] Social History Date Type Detail Facility Start: 08-17-2022 Tobacco smoking stat us NDIS Never smoked tobacco [facility] Start: 03-13-2021 End: 08-17-2022 Alcohol intake Current non-drinker of alcohol (finding) [facility] Start: 1970 Sex Assigned At Not on file [facility] Start: 05-19-2021 End: 06-10-2021 Exposure to SARS-CoV-2 (event) Not sure [facility] Start: 08-17-2022 Tobacco use and exposure Smoke less tobacco non-user [facility] Progress note 12-13-2022 Note Date & Type Note Facility 12-13-2022 Note HNO ID: [id number] Author: Mark Glynn APRN.GUARD CAPTAIN Service: ? Author Type: Nurse Practitioner Type: Progress Notes Filed: 12/13/2022 3:15 PM Note Text: Subjective HPI HPI Clayton Jenkins is a 52 year old male who presents today for CC of left ear plugged, popping, dizziness. This started 1 day ago. Has tried otc medication for relief. Symptoms are worsened by nothing. Risk factors hx of left ear issues/dizziness. Denies cough. .Patient presents with: Ear Problem: left ear plugged and popping, dizziness x 1 day PAST MEDICAL HISTORY Diagnosis Date Anxiety Depressive disorder, not elsewhere classified 03/20/2009 Diverticulitis 03/20/2009 Hospital stay 2003. HTN (hypertension) Hyperlipemia PAST SURGICAL HISTORY Procedure Laterality Date PAST SURGICAL HISTORY OF 1993 Benign Tumor of neck ALLERGIES Patient has no known allergies. MEDICATIONS aspirin, enteric coated (ASPIRIN, ENTERIC COATED) 81 mg EC tablet Take 81 mg by mouth once daily. TRULICITY 0.75 mg/0.5 mL pen injector Inject 0.75 mg subcutaneous every week as directed insulin glargine (LANTUS SOLOSTAR, BASAGLAR KWIKPEN) 100 unit/mL (3 mL) Insulin Glargine (Lantus Solostar U-100 Insulin) 100 unit/mL (3 mL) insulin pen Active 55 UNIT SC AT BEDTIME December 31, 2020 8:11am LANTUS SOLOSTAR U-100 INSULIN 100 unit/mL (3 mL) Inject 50 units under the skin twice daily. lisinopril(PRINIVIL 5 MG TAB) Take one(1) tablet daily. ranitidine hcl(ZANTAC 150 MG TAB) One a day at bedtime. HYDROCHLOROTHIAZIDE 25 MG TAB Take one(1) tablet daily. predniSONE (DELTASONE) 10 mg tablet Take 4 tabs daily for 3 days, then 2 tabs daily for 3 days, then 1 tab daily for 3 days with food. fluticasone (FLONASE) 50 mcg/actuation nasal spray Use 2 Sprays in each nostril once daily. Rinse mouth after use. diazePAM (VALIUM) 5 mg tablet Take by mouth. (Patient not taking: Reported on 06/10/2021) peg 3350/na sulf,bicarb,cl/kcl(GOLYTELY ORAL SOLUTION) as directed (Patient not taking: Reported on 03/13/2021) docusate sodium(DOK 100 MG CAP) One to two capsules at bedtime (Patient not taking: ) ezetimibe(ZETIA 10 MG TAB) Take one(1) tablet daily. (Patient not taking: ) sertraline hcl(ZOLOFT 50 MG TAB) Take two a day. (Patient not taking: Reported on 08/17/2022) FAMILY HISTORY Problem Relation Age of Onset Hypertension Mother Hypertension Father Diabetes Father Hypertension Sister Hypertension Paternal Grandfather Diabetes Paternal Grandfather Social History Tobacco Use Smoking status: Never Smokeless tobacco: Never Vaping Use Vaping Use: Never used Substance Use Topics Alcohol use: No Drug use: No Review of Systems Constitutional: Negative for fever. HENT: Positive for congestion and ear pain. Negative for ear discharge, nosebleeds and sore throat. Respiratory: Negative for cough, shortness of breath and wheezing. Musculoskeletal: Negative for neck pain. Skin: Negative for itching and rash. Neurological: Positive for dizziness. Negative for headaches. Objective Blood pressure 128/88, pulse 90, temperature 36.7 ?C (98 ?F), resp. rate 16, weight 112.5 kg (248 lb), SpO2 96 %. Physical Exam Constitutional: General: He is not in acute distress. Appearance: He is not toxic-appearing or diaphoretic. HENT: Head: Normocephalic and atraumatic. Right Ear: Hearing, tympanic membrane, ear canal and external ear normal. Left Ear: Hearing, tympanic membrane, ear canal and external ear normal. Nose: Nose normal. Mouth/Throat: Lips: Sarita. Mouth: Mucous membranes are moist. Pharynx: Oropharynx is clear. Uvula midline. Pulmonary: Effort: Pulmonary effort is normal. No accessory muscle usage or respiratory distress. Lymphadenopathy: Cervical: No cervical adenopathy. Right cervical: No superficial cervical adenopathy. Left cervical: No superficial cervical adenopathy. Neurological: Mental Status: He is alert and oriented to person, place, and time. ASSESSMENT/PLAN: 1. Dysfunction of left eustachian tube - ICD9: 381.81, ICD10: H69.92 -use medication as prescribed -follow up if symptoms persist, worsen, change - PREDNISONE 10 MG TABLET - FLUTICASONE PROPIONATE 50 MCG/ACTUATION NASAL SPRAY,SUSPENSION Mark Glynn APRN.[facility] Progress note 08-17-2022 Note Date & Type Note Facility 08-17-2022 Note HNO ID: [id number] Author: RANDALL Ferguson Service: ? Author Type: Physician Technical Programs Manager Type: Progress Notes Filed: 08/17/2022 11:41 AM Note Text: This note was created using NoteWriter. Subjective Clayton B Floyd is a 52 year old male. HPI 82-year-old male presents for low back pain x1 week. Patient denies any injury or fall. States nothing makes the pain better or worse. It is on both sides of his low back. No history of this in the past. No urinary symptoms. No blood in the urine. No nausea, vomiting, diarrhea. Patient states occasionally he gets a burning sensation on the right side of his abdomen. No real pain. No pain currently. Eating does not make the pain better or worse. He denies any rashes. No fevers. No other complaints. PAST MEDICAL HISTORY Diagnosis Date Anxiety Depressive disorder, not elsewhere classified 03/20/2009 Diverticulitis 03/20/2009 Hospital stay 2003. HTN (hypertension) Hyperlipemia PAST SURGICAL HISTORY Procedure Laterality Date PAST SURGICAL HISTORY OF 1993 Benign Tumor of neck ALLERGIES Patient has no known allergies. MEDICATIONS aspirin, enteric coated (ASPIRIN, ENTERIC COATED) 81 mg EC tablet Take 81 mg by mouth once daily. TRULICITY 0.75 mg/0.5 mL pen injector Inject 0.75 mg subcutaneous every week as directed insulin glargine (LANTUS SOLOSTAR, BASAGLAR KWIKPEN) 100 unit/mL (3 mL) Insulin Glargine (Lantus Solostar U-100 Insulin) 100 unit/mL (3 mL) insulin pen Active 55 UNIT SC AT BEDTIME December 31, 2020 8:11am LANTUS SOLOSTAR U-100 INSULIN 100 unit/mL (3 mL) Inject 50 units under the skin twice daily. lisinopril(PRINIVIL 5 MG TAB) Take one(1) tablet daily. ranitidine hcl(ZANTAC 150 MG TAB) One a day at bedtime. HYDROCHLOROTHIAZIDE 25 MG TAB Take one(1) tablet daily. diazePAM (VALIUM) 5 mg tablet Take by mouth. (Patient not taking: Reported on 06/10/2021) peg 3350/na sulf,bicarb,cl/kcl(GOLYTELY ORAL SOLUTION) as directed (Patient not taking: Reported on 03/13/2021) docusate sodium(DOK 100 MG CAP) One to two capsules at bedtime (Patient not taking: ) ezetimibe(ZETIA 10 MG TAB) Take one(1) tablet daily. (Patient not taking: ) sertraline hcl(ZOLOFT 50 MG TAB) Take two a day. (Patient not taking: Reported on 08/17/2022) FAMILY HISTORY Problem Relation Age of Onset Hypertension Mother Hypertension Father Diabetes Father Hypertension Sister Hypertension Paternal Grandfather Diabetes Paternal Grandfather Social History Tobacco Use Smoking status: Never Smokeless tobacco: Never Vaping Use Vaping Use: Never used Substance Use Topics Alcohol use: No Drug use: No Review of Systems Constitutional: Negative for chills and fever. HENT: Negative for congestion and sore throat. Respiratory: Negative for cough and shortness of breath. Gastrointestinal: Negative for abdominal pain, diarrhea and vomiting. + abd burning sensation, no pain Genitourinary: Negative for dysuria, flank pain, frequency and hematuria. Musculoskeletal: Positive for back pain. Objective BP 140/98 Pulse 76 Temp 36.3 ?C (97.4 ?F) Resp 18 Wt 114.2 kg (251 lb 12.8 oz) SpO2 96% Physical Exam Vitals and nursing note reviewed. Constitutional: General: He is not in acute distress. Appearance: Normal appearance. He is not toxic-appearing. HENT: Nose: Nose normal. Mouth/Throat: Mouth: Mucous membranes are moist. Eyes: Conjunctiva/sclera: Conjunctivae normal. Cardiovascular: Rate and Rhythm: Normal rate and regular rhythm. Pulmonary: Effort: Pulmonary effort is normal. Breath sounds: Normal breath sounds. Abdominal: General: Abdomen is flat. Palpations: Abdomen is soft. Tenderness: There is no abdominal tenderness. There is no right CVA tenderness or left CVA tenderness. Comments: No tenderness. No rash. Musculoskeletal: Lumbar back: Tenderness (Mild bilateral paraspinal muscle tenderness) present. No swelling or bony tenderness. Normal range of motion. Negative right straight leg raise test and negative left straight leg raise test. Skin: General: Skin is warm and dry. Neurological: Mental Status: He is alert. Assessment and Plan ASSESSMENT/PLAN: 1. Acute bilateral low back pain without sciatica - ICD9: 724.2, 338.19, ICD10: M54.50 (primary diagnosis) - UA DIP, URINE (POC) -Urine normal. -Suspect muscular pain. -Rx for Robaxin. Advised him to drive while taking this medication. -Follow-up with PCP if symptoms persist. 2. Abdominal burning sensation in right upper quadrant - ICD9: 789.01, ICD10: R19.8 Etiology unclear Differential Diagnosis includes GERD, Gastritis, and Gall bladder colic/cholelithiasis -No pain currently. Possible GERD or dyspepsia. On Zantac. Advised may try Pepcid as well. -Recommend follow-up with PCP if symptoms do not improve. -No abdominal tenderness on exam. No fevers, vomiting, diarrhea. Low suspicion for acute surgical abdomen. (more content not included)... [facility] History of Present illness Narrative 08-17-2022 RANDALL Ferguson - 08/17/2022 11:31 AM EDT Note Date & Type Note Facility 08-17-2022 History of Presen t illness Narrative This note was created using [employer]. Subjective Clayton Jenkins is a 52 year old male. HPI 82-year-old male presents for low back pain x1 week. Patient denies any injury or fall. States nothing makes the pain better or worse. It is on both sides of his low back. No history of this in the past. No urinary symptoms. No blood in the urine. No nausea, vomiting, diarrhea. Patient states occasionally he gets a burning sensation on the right side of his abdomen. No real pain. No pain currently. Eating does not make the pain better or worse. He denies any rashes. No fevers. No other complaints. PAST MEDICAL HISTORY Diagnosis Date Anxiety Depressive disorder, not elsewhere classified 03/20/2009 Diverticulitis 03/20/2009 Hospital stay 2003. HTN (hypertension) Hyperlipemia PAST SURGICAL HISTORY Procedure Laterality Date PAST SURGICAL HISTORY OF 1993 Benign Tumor of neck ALLERGIES Patient has no known allergies. MEDICATIONS aspirin, enteric coated (ASPIRIN, ENTERIC COATED) 81 mg EC tablet Take 81 mg by mouth once daily. TRULICITY 0.75 mg/0.5 mL pen injector Inject 0.75 mg subcutaneous every week as directed insulin glargine (LANTUS SOLOSTAR, BASAGLAR KWIKPEN) 100 unit/mL (3 mL) Insulin Glargine (Lantus Solostar U-100 Insulin) 100 unit/mL (3 mL) insulin pen Active 55 UNIT SC AT BEDTIME December 31, 2020 8:11am LANTUS SOLOSTAR U-100 INSULIN 100 unit/mL (3 mL) Inject 50 units under the skin twice daily. lisinopril(PRINIVIL 5 MG TAB) Take one(1) tablet daily. ranitidine hcl(ZANTAC 150 MG TAB) One a day at bedtime. HYDROCHLOROTHIAZIDE 25 MG TAB Take one(1) tablet daily. diazePAM (VALIUM) 5 mg tablet Take by mouth. (Patient not taking: Reported on 06/10/2021) peg 3350/na sulf,bicarb,cl/kcl(GOLYTELY ORAL SOLUTION) as directed (Patient not taking: Reported on 03/13/2021) docusate sodium(DOK 100 MG CAP) One to two capsules at bedtime (Patient not taking: ) ezetimibe(ZETIA 10 MG TAB) Take one(1) tablet daily. (Patient not taking: ) sertraline hcl(ZOLOFT 50 MG TAB) Take two a day. (Patient not taking: Reported on 08/17/2022) FAMILY HISTORY Problem Relation Age of Onset Hypertension Mother Hypertension Father Diabetes Father Hypertension Sister Hypertension Paternal Grandfather Diabetes Paternal Grandfather Social History Tobacco Use Smoking status: Never Smokeless tobacco: Never Vaping Use Vaping Use: Never used Substance Use Topics Alcohol use: No Drug use: No Review of Systems Constitutional: Negative for chills and fever. HENT: Negative for congestion and sore throat. Respiratory: Negative for cough and shortness of breath. Gastrointestinal: Negative for abdominal pain, diarrhea and vomiting. + abd burning sensation, no pain Genitourinary: Negative for dysuria, flank pain, frequency and hematuria. Musculoskeletal: Positive for back pain. Objective BP 140/98 Pulse 76 Temp 36.3 C (97.4 F) Resp 18 Wt 114.2 kg (251 lb 12.8 oz) SpO2 96% Physical Exam Vitals and nursing note reviewed. Constitutional: General: He is not in acute distress. Appearance: Normal appearance. He is not toxic-appearing. HENT: Nose: Nose normal. Mouth/Throat: Mouth: Mucous membranes are moist. Eyes: Conjunctiva/sclera: Conjunctivae normal. Cardiovascular: Rate and Rhythm: Normal rate and regular rhythm. Pulmonary: Effort: Pulmonary effort is normal. Breath sounds: Normal breath sounds. Abdominal: General: Abdomen is flat. Palpations: Abdomen is soft. Tenderness: There is no abdominal tenderness. There is no right CVA tenderness or left CVA tenderness. Comments: No tenderness. No rash. Musculoskeletal: Lumbar back: Tenderness (Mild bilateral paraspinal muscle tenderness) present. No swelling or bony tenderness. Normal range of motion. Negative right straight leg raise test and negative left straight leg raise test. Skin: General: Skin is warm and dry. Neurological: Mental Status: He is alert. Assessment and Plan ASSESSMENT/PLAN: 1. Acute bilateral low back pain without sciatica - ICD9: 724.2, 338.19, ICD10: M54.50 (primary diagnosis) - UA DIP, URINE (POC) -Urine normal. -Suspect muscular pain. -Rx for Robaxin. Advised him to drive while taking this medication. -Follow-up with PCP if symptoms persist. 2. Abdominal burning sensation in right upper quadrant - ICD9: 789.01, ICD10: R19.8 Etiology unclear Differential Diagnosis includes GERD, Gastritis, and Gall bladder colic/cholelithiasis -No pain currently. Possible GERD or dyspepsia. On Zantac. Advised may try Pepcid as well. -Recommend follow-up with PCP if symptoms do not improve. -No abdominal tenderness on exam. No fevers, vomiting, diarrhea. Low suspicion for acute surgical abdomen. -Given red flag symptoms and when to go to ER. Diagnosis and treatment plan were discussed and questions were answered to the patient's satisfaction. Pt acknowledged understanding of concepts and follow up plan. Specific signs and symptoms that would indicate the need for higher level of care were discussed in detail warranting prompt ER evaluation. RANDALL Ferguson documented in this encounter [facility] History of Present illness Narrative 06-10-2021 Shirin Leone RT(R) - 06/10/2021 1:30 PM EDT Note Date & Type Note Facility 06-10-2021 History of Presen t illness Narrative Radiology Service Progress Note PATIENT NAME: Clayton Jenkins DATE OF SERVICE: June 10, 2021 TIME: 1:40 PM PATIENT IDENTITY VERIFICATION COMPLETED USING TWO (2) IDENTIFIERS: Name and Date of confirmed by patient verbally. FALL SCREENING: Has the patient had 2 falls in the last year or 1 fall with injury or currently using an Ambulatory Assistive Device (Walker, Cane, Wheelchair, Crutches, etc.)? No PATIENT GENDER DATA: Male PATIENT RELEVANT IMPLANT DATA REVIEWED: Yes RADIOLOGY DEPARTMENT: General X-ray: Exam(s) Completed: Lower Extremity X-Ray(s): Foot, Right and Wt. Bearing PERIPHERAL IV DATA: Not applicable SIGNED BY: RT James(R) June 10, 2021 1:40 PM documented in this encounter [facility] Evaluation note Note Date & Type Note Facility documented in this encounter [facility] Evaluation note Note Date & Type Note Facility documented in this encounter [facility] Evaluation note Note Date & Type Note Facility documented in this encounter [facility] Reason for referral (narrative) Diagnostic Procedure Only (Routine) - Authorized Note Date & Type Note Facility Referral ID Status Reason Start Date Expiration Date Visits Requested Visits Authorized [id number] Authorized Auto-Generat ed Referral 05/29/2021 06/28/2022 1 1 * Diagnostic Procedure Only (Routine) - Authorized Specialty Diagnoses / Procedures Referred By Yaquelin t Referred To Contact XR IMAGING Diagnoses Pain Procedures XR FOOT GENERAL 3V AP/LAT/OBL RIGHT RADEX FOOT COMPLETE MINIMUM 3 VIEWS Leonard Wilson [address] [place] [address] Xr Imaging Referral ID Status Reason Start Date Expiration Date Visits Requested Visits Authorized [id number] Authorized Auto-Generat ed Referral 05/29/2021 06/28/2022 1 1 [facility] Reason for referral (narrative) Diagnostic Procedure Only (Routine) - Closed Note Date & Type Note Facility Referral ID Status Reason Start Date Expiration Date V isits Requested Visits Authorized [id number] Closed Auto-Generate d Referral 05/29/2021 06/28/2022 1 1 [facility] Reason for visit Narrative Diagnostic Procedure Only (Routine) - Closed Note Date & Type Note Facility Referral ID Status Reason Start Date Expiration Date V isits Requested Visits Authorized [id number] Closed Auto-Generate d Referral 05/29/2021 06/28/2022 1 1 [facility] Summary Purpose Family History No Family History Records FoundNo Family History Records Found Advance Directives No Advanced Directives Records FoundNo Advanced Directives Records Found Additional Source Comments (unrecognized sect ion and content) No Status Records FoundNo Status Records Found INFORMATION SOURCE (unrecogn ized section and content) DATE CREATED AUTHOR AUTHOR'S ORGANIZ ATION 12/14/[address] [facility] Source Comments (unrecognize d section and content) In the event this informatio n is protected by the Federal Confidentiality of Alcohol and Drug Abuse Patient Records regulations: The Federal rules restrict any use of the information to criminally investigate or prosecute any alcohol or drug abuse patient.[facility] the event this information is protected by the Federal Confidentiality of Alcohol and Drug Abuse Patient Records regulations: The Federal rules restrict any use of the information to criminally investigate or prosecute any alcohol or drug abuse patient.[facility] the event this information is protected by the Federal Confidentiality of Alcohol and Drug Abuse Patient Records regulations: The Federal rules restrict any use of the information to criminally investigate or prosecute any alcohol or drug abuse patient.[facility] the event this information is protected by the Federal Confidentiality of Alcohol and Drug Abuse Patient Records regulations: The Federal rules restrict any use of the information to criminally investigate or prosecute any alcohol or drug abuse patient.[facility] Care Teams (unrecognized sec tion and content) Drum Reel Cutter Relationship Specialty Start Date End Date Sonam Gutierrez PCP - General 04/01/09 Anya Beauchamp, [employer]ANT [employer]PER[employer] WORKER.GUARD CAPTAIN [address] [place] [address] Nurse Practitioner Family Practice 05/21/21 Drum Reel Cutter Relationship Specialty Start Date End Date Sonam Gutierrez PCP - General 04/01/09 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 This clinical summary was aggregated from multiple sources. Caution should be exercised in using it in the provision of clinical care. This summary normalizes information from multiple sources, and as a consequence, information in this document may materially change the coding, format and clinical context of patient data. In addition, data may be omitted in some cases. CLINICAL DECISIONS SHOULD BE BASED ON THE PRIMARY CLINICAL RECORDS. [facility]. provides no warranty or guarantee of the accuracy or completeness of information in this document.
[2023-03-01 10:16] LABS: Hematocrit 52.4 % (40-54); Mean Corp Hgb Conc 32.4 g/dL (32-36); Mean Corpuscular Volume 83.2 fL (80-94); Mean Platelet Vol. 9.8 fl (6.2-12.0); Platelet Count 297 K/mm3 (150-450); RBC Distribution Width CV 13.4 % (11.6-14.6); White Blood Count 9.7 K/mm3 (4.4-11.0)
[2023-03-01 10:49] LABS: Microalbumin,Random Urine 8.6 mg/L (NO RANGE EST.)
[2023-03-01 11:06] LABS: Vitamin B12 299 pg/mL (211-911); Vitamin D,25 Hydroxy 35.2 ng/mL
[2023-03-01 11:18] LABS: ALB/GLOB Ratio 0.8 RATIO (0.9-2.4); AST(SGOT) 28 U/L (15-37); Alanine Aminotransfer ALT/SGPT 35 U/L (16-61); Albumin, Serum 3.2 g/dL (3.2-5.0); Alkaline Phosphatase 89 U/L (45-117); Anion Gap 5 (5-15); BUN 19 mg/dL (7-18); BUN/Creat Ratio 12.3 RATIO (10-20); Chloride 104 mmol/L (98-107); Cholesterol 197 mg/dL (200); Creatinine, Serum 1.55 mg/dL (0.70-1.30); EST Glomerular Filtration Rate 50 mL/min (>60); Est Glom Filt Rate - Afr Amer 60 mL/min (>60); Globulin 4.2 g/dL (2.2-4.2); Glucose 231 mg/dL (74-106); High Density Lipoprotein 23 mg/dL; PSA,Total - Annual Screen 0.54 ng/mL (0.00-4.00); Potassium 4.3 mmol/L (3.5-5.1); Protein, Total 7.4 g/dL (6.4-8.2); Sodium Level 138 mmol/L (136-145); Thyroid Stim Hormone (TSH) 1.97 uIU/mL (0.358-3.74); Triglycerides 240 mg/dL; Uric Acid 6.8 mg/dL (3.5-7.2); Very Low Density Lipoprotein 48 mg/dL (5-40)
== END | disposition home or self-care (01) ==
LOC: LAB 09:10
PROVIDERS: Visit Provider Nurse Practitioner Family
DX: E11.65 Type 2 diabetes mellitus with hyperglycemia (principal); E78.2 Mixed hyperlipidemia; M10.9 Gout, unspecified; R20.2 Paresthesia of skin; Z12.5 Encounter for screening for malignant neoplasm of prostate
CPT/HCPCS: 84153; 36415; 80053; 80061; 82043; 82306; 82607; 84443; 84550; 85027; G0103

== ENCOUNTER → 2023-05-17 | Outpatient (CLI) | payer MEDICAID, SELFPAY ==
--- NOTE | 2023-05-17 14:06 | NEURO ---
NCS and/or EMG Patient Report Ordering Doctor: Mary Grace Beckford NP DATE OF SERVICE: 05/17/23 Clinical Summary: 52 year old male patient with history of diabetes with symptoms of numbness/tingling in the distal lower extremities (knees to the toes) for the past year. This EMG/NCS was performed to evaluate for peripheral polyneuropathy. Nerve Conduction Studies Summary: The right sural and superficial peroneal SNAP's were absent. The bilateral peroneal motor and right tibial peroneal motor conduction velocities were reduced. The peroneal and tibial F-wave onset latencies were prolonged bilaterally. Needle Examination Summary: Needle examination demonstrated increased insertional activity and positive sharp waves in the right medial gastrocnemius muscle. Impression: There is electrodiagnostic evidence of the following - 1) Length-dependent, peripheral polyneuropathy, with axonal and demyelinating features Multi Select Codes Neurology Neurology Interp Codes: 70617-66 Musc test done w/n test comp (interp) (2) and 78600-61 Nrv cndj test 7-8 studies (interp)
== END | disposition home or self-care (01) ==
PROVIDERS: PCP Nurse Practitioner Family; Referring Provider Nurse Practitioner Family; Visit Provider Nurse Practitioner Family
DX: R20.2 Paresthesia of skin (principal)
CPT/HCPCS: 95886; 95910

== ENCOUNTER → 2024-05-25 | Outpatient (CLI) | payer MEDICAID, SELFPAY ==
[2024-05-25 12:48] LABS: Absolute Lymphocyte Count 2.53 X10^3/uL (0.83-4.51); Absolute Neutrophil Count 5.5 X10^3/uL (2.0-7.7); Basophil# 0.08 X10^3/uL; Basophil% 0.9 % (0-1); Eosinophil# 0.25 X10^3/uL; Eosinophils% 2.8 % (0-5); Hematocrit 50.2 % (40-54); Hemoglobin 16.9 g/dL (13.0-16.5); Lymphocyte # 2.53 X10^3/ul (0.83-4.51); Mean Corp Hgb Conc 33.7 g/dL (32-36); Mean Corpuscular Hgb 27.7 pg (27.0-32.0); Mean Corpuscular Volume 82.3 fL (80-94); Mean Platelet Vol. 9.2 fl (6.2-12.0); Monocyte# 0.65 X10^3/uL; Monocyte% 7.2 % (0-10); NRBC Flagged by Analyzer 0 % (0-5); Neutrophil # 5.53 X10^3/uL (2.7-7.7); Platelet Count 242 K/mm3 (150-450); RBC Distribution Width CV 14.5 % (11.6-14.6); RBC Distribution Width SD 40.6 fl (35.1-43.9); White Blood Count 9.1 K/mm3 (4.4-11.0)
[2024-05-25 14:11] LABS: ALB/GLOB Ratio 1.2 RATIO (0.9-2.4); AST(SGOT) 31 U/L (<=37); Alanine Aminotransfer ALT/SGPT 28 U/L (<=46); Alkaline Phosphatase 77 U/L (40-129); Anion Gap 12 (5-15); BUN 12 mg/dL (4-19); BUN/Creat Ratio 8.8 RATIO (10-20); Carbon Dioxide 25.4 mmol/L (21.0-32.0); Chloride 103 mmol/L (98-108); Cholesterol 171 mg/dL (<=200); Creatinine, Serum 1.31 mg/dL (0.70-1.20); EST Glomerular Filtration Rate 64 (>60); Globulin 3.3 g/dL (2.2-4.2); Glucose 109 mg/dL (70-99); High Density Lipoprotein 29 mg/dL; Low Density Lipoprotein Calc. 93 mg/dL; Potassium 4.1 mmol/L (3.3-5.1); Protein, Total 7.4 g/dL (5.9-8.4); Sodium Level 140 mmol/L (133-145); Total Bilirubin 0.32 mg/dL (0.00-1.30); Triglycerides 246 mg/dL; Very Low Density Lipoprotein 49 mg/dL (5-40); Vitamin B12 319 pg/mL (180-914); cholesterol:hdl ratio screen 5.88
[2024-05-25 15:08] LABS: Microalbumin,Random Urine < 12.0 mg/L (NO RANGE EST.)
== END | disposition home or self-care (01) ==
LOC: VSLAB 09:41
PROVIDERS: PCP Nurse Practitioner Family; Visit Provider Nurse Practitioner Family
DX: E78.2 Mixed hyperlipidemia (principal); E11.65 Type 2 diabetes mellitus with hyperglycemia; E11.42 Type 2 diabetes mellitus with diabetic polyneuropathy; I10 Essential (primary) hypertension; Z12.5 Encounter for screening for malignant neoplasm of prostate
CPT/HCPCS: 84153; 36415; 80053; 80061; 82043; 82306; 82607; 84443; 85025; G0103

== ENCOUNTER → 2024-09-21 | Outpatient (CLI) | payer MEDICAID, SELFPAY | END | disposition home or self-care (01) | LOC: SL 12:44 | PROVIDERS: PCP Nurse Practitioner Family; Referring Provider Nurse Practitioner Family; Visit Provider Nurse Practitioner Family | DX: G47.10 Hypersomnia, unspecified (principal) | CPT/HCPCS: 95806 ==

== ENCOUNTER → 2025-01-29 | Outpatient (CLI) | payer MEDICAID, SELFPAY ==
[2025-01-29 17:04] LABS: Hematocrit 53.0 % (40-54); Hemoglobin 17.5 g/dL (13.0-16.5); Immature Granulocytes Count 0.020 X10^3/uL (0.0-0.0); Mean Corp Hgb Conc 33.0 g/dL (32-36); Mean Corpuscular Volume 85.2 fL (80-94); Mean Platelet Vol. 9.8 fl (6.2-12.0); NRBC Flagged by Analyzer 0 % (0-5); Platelet Count 289 K/mm3 (150-450); RBC Distribution Width CV 13.5 % (11.6-14.6); RBC Distribution Width SD 41.7 fl (35.1-43.9); Red Blood Count 6.22 M/mm3 (4.6-6.2); White Blood Count 8.8 K/mm3 (4.4-11.0)
[2025-01-29 17:31] LABS: Microalbumin,Random Urine 50.2 mg/L (<20 mg/L)
[2025-01-29 17:42] LABS: AST(SGOT) 26 U/L (<=37); Alanine Aminotransfer ALT/SGPT 20 U/L (<=46); Albumin, Serum 4.2 g/dL (3.5-5.0); Alkaline Phosphatase 69 U/L (40-129); Anion Gap 11 (5-15); BUN 13 mg/dL (4-19); BUN/Creat Ratio 10.2 RATIO (10-20); Calcium,Total 9.1 mg/dL (7.6-11.0); Carbon Dioxide 24.8 mmol/L (21.0-32.0); Chloride 106 mmol/L (98-108); Cholesterol 110 mg/dL (<=200); Globulin 3.6 g/dL (2.2-4.2); Glucose 77 mg/dL (70-99); Low Density Lipoprotein Calc. 60 mg/dL; Potassium 4.1 mmol/L (3.3-5.1); Triglycerides 113 mg/dL; Uric Acid 7.1 mg/dL (3.5-7.2); Very Low Density Lipoprotein 23 mg/dL (5-40); Vitamin B12 361 pg/mL (180-914); Vitamin D,25 Hydroxy 31.0 ng/mL (30-100); cholesterol:hdl ratio screen 3.78
[2025-01-31 18:08] LABS: PSA, Total 0.5 ng/mL (0.0-4.0)
== END | disposition home or self-care (01) ==
LOC: VSLAB 11:40
PROVIDERS: PCP Nurse Practitioner Family; Referring Provider Family Medicine; Visit Provider Family Medicine
DX: Z12.5 Encounter for screening for malignant neoplasm of prostate (principal); E11.9 Type 2 diabetes mellitus without complications; M10.9 Gout, unspecified; E78.2 Mixed hyperlipidemia; E53.8 Deficiency of other specified B group vitamins; E55.9 Vitamin D deficiency, unspecified
CPT/HCPCS: 36415; 80053; 80061; 82043; 82306; 82607; 83036; 84153; 84550; 85025